=== PATIENT | female | born 1960 | race Caucasian/White ===

== ENCOUNTER 2018-06-07 16:06 | Emergency (ER) | payer MEDICAID, MEDICARE ==
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
--- NOTE | 2018-06-07 18:34 | RAD ---
Date of service: 06/07/2018 PROCEDURE: Radiographs of the Lumbar Spine. HISTORY: PAIN COMPARISON: No prior. TECHNIQUE: 5 views obtained. FINDINGS: BONES: No acute compression fractures nor retropulsed fragments. Vertebral bodies exhibit normal stature. Slight levoscoliosis centered at the L2-L3 level. Vertebral bodies otherwise exhibit normal alignment. Facets normally aligned. DISC SPACES: Minor multilevel degenerative spondylosis.. Minor posterior disc space narrowing seen at the L5-S1 and L4-L5 levels with small marginal anterolateral osteophyte formation. Facets also mildly hypertrophic L5-S1 through the L3-L4 levels in decreasing order of severity OTHER FINDINGS: Metallic clips right upper quadrant of the abdomen consistent with cholecystectomy IMPRESSION: No acute fractures. Minor multilevel degenerative spondylosis.
[2018-06-07 18:39] LABS: URINE BILIRUBIN NEGATIVE (NEGATIVE); URINE BLOOD NEGATIVE (NEGATIVE); URINE CLARITY CLEAR (Clear); URINE COLOR STRAW (YELLOW); URINE GLUCOSE (UA) NEG (NEGATIVE); URINE LEUKOCYTE ESTERASE NEG Leu/uL (Negative); URINE PROTEIN 30 mg/dL (NEGATIVE); URINE UROBILINOGEN 0.2-1.0 mg/dL (0.2-1.0)
[2018-06-07 18:52] LABS: BARBITURATES, UR NEGATIVE (NEGATIVE); BENZODIAZEPINES, UR NEGATIVE (NEGATIVE); OPIATES, UR NEGATIVE (NEGATIVE); PHENCYCLIDINE, UR NEGATIVE (NEGATIVE)
[2018-06-07 19:10] VITALS: RESP 20
[2018-06-07 23:08] VITALS: BP 178/85; PULSE 77; TEMP 99.1
[2018-06-08 21:46] VITALS: O2SAT 100
== END 2018-06-07 23:06 | disposition home or self-care (01) ==
LOC: H.ER 16:06
DX: F41.9 Anxiety disorder, unspecified (principal); M54.5 Low back pain; Z88.0 Allergy status to penicillin; Z00.8 Encounter for other general examination
CPT/HCPCS: 72100; 81003; 82948; 99285; G0480